=== PATIENT | male | born 1995 | race Caucasian/White ===

== ENCOUNTER 2025-01-13 22:35 | Emergency (ER) | payer OTHER, BC ==
[~2025-01-13] VITALS: Ht 188 cm; Wt 102.3 kg
--- NOTE | 2025-01-14 02:21 | Physician Documentation ---
History of Present Illness ~ Chief Complaint: Laceration Stated Complaint: HAND LAC Time Seen by MD: 02:20 HPI Patient presents to the emergency room for evaluation of laceration to the base of his right index finger that happened prior to arrival while cutting open an avocado. He reports his tetanus is up-to-date Tetanus Within 5 Years: No Medication Reconciliation Allergies: Uncoded Allergies: BEE STING (Allergy, Unknown, 01/13/25) Past Medical History Smoking Status: Never smoker Review of Systems ROS All review of systems negative except as per HPI Physical Exam Vital Signs: Temperature: 98.3, Source: Oral, Heart Rate: 97, Respiratory Rate: 16, BP: 147/103, Pulse Oximetry: 95, Weight: 102.270 Oxygen Flow Rate: 0 Physical Exam General: Patient is awake, alert, oriented x4 in no acute distress and well appearing.~ Head: Normocephalic and atraumatic. Eyes: Conjunctival normal. EOMI. PERRL. ENT: Mucous membranes moist. Neck: Supple, trachea is midline. Chest: Clear to auscultation bilaterally without rales, rhonchi, or wheezes. There is no accessory muscle use or retractions. Cardiac: RRR without murmurs, gallops, or rubs. Laceration noted to just distally to his 2nd MP joint of his right index finger measuring 2.5 cm. No active bleeding. All movements intact. Neurovascularly intact. Procedures Procedure Note Laceration repair: Status post informed verbal consent patient was sterilely cleaned and draped. Using 4-0 Ethilon patient's laceration wound edges were approximated after anesthetizing with 1 cc of 1% lidocaine with epinephrine and wound thoroughly irrigated. Five simple interrupted sutures placed. Patient tolerated procedure without complication. Bandage and antibiotic ointment placed. Total time of procedure 10 minutes. Progress Results/Orders Results/Orders Orders - ALEXIS APPLE MD Dressing Orders (01/14/25 02:24) Wound Care Orders (01/14/25 02:24) Completed Orders - AELXIS APPLE MD Bacitracin Ointment (Bacitracin Ointment (01/14/25 02:25) Lidocaine 1% W/Epi 1:100,000 (Xylocaine (01/14/25 02:30) Medications Received in ER Medications (Trade) Dose Ordered Sig/Arlene Route PRN Reason Start Time Stop Time Status Last Admin Dose Admin (Xylocaine 1%-EPI 1:100,000) 10 ml ONCE ONCE IJ 01/14/25 02:30 01/14/25 02:31 DC 01/14/25 02:48 10 ML (bacitracin ointment) 1 applic ONCE ONCE TP 01/14/25 02:25 01/14/25 02:26 DC 01/14/25 02:48 1 APPLIC Vital Signs 01/13/25 22:56 Temp 98.3 Pulse 97 Resp 16 B/P (MAP) 147/103 Pulse Ox 95 O2 Flow Rate 0 Medical Decision Making Findings Patient presented to the emergency room with laceration as above. Differentials include laceration, tendinous injury, arterial injury, nerve injury. Physical exam is reassuring I do not feel labs or imaging is necessary. I do not believe deeper structures are involved. Patient is status post laceration repair. Woun d care as well as the need to have sutures removed discussed. ER precautions regarding symptoms of infection discussed and patient's tetanus reported to be up-to-date. Departure Disposition: HOME / SELF CARE / HOMELESS Impression: Primary Impression: Laceration Condition: Stable Discharge Instructions: Laceration Care, Adult, [id number] Additional Instructions: Wash daily with soap and water. Keep covered with antibiotic ointment. You may go to any medical facility to have your sutures removed in 10 days Referrals: NO PRIMARY CARE PROVIDER (PCP) Education Educated: Patient Educated regarding: diagnosis, treatment, need for follow up Signature Scribe Signature: No scribe Attestation: The note accurately reflects work and decisions made by me.Alexis Apple MD 01/14/25 03:26 ALEXIS APPLE MD January 14, 2025 02:21
[2025-01-14] MEDS: bacitracin 15gm ointment TP ONE (02:48)
[2025-01-14] MEDS: LIDOcaine 1% W/epiNEPHrine 1:100,000 20ml vial IJ ONE (02:48)
[2025-01-14 03:30] VITALS: BP 145/96; PULSE 90; RESP 20; TEMP 98.6; O2SAT 99
== END 2025-01-14 03:31 | disposition home or self-care (01) ==
LOC: ER 22:36
DX: S61.210A Laceration without foreign body of right index finger without damage to nail, initial encounter (principal); W45.8XXA Other foreign body or object entering through skin, initial encounter; Y93.89 Activity, other specified; Y92.89 Other specified places as the place of occurrence of the external cause; Y99.8 Other external cause status
CPT/HCPCS: 12001; 99282; J3490